=== PATIENT | male | born 1945 | race Caucasian/White ===

== ENCOUNTER → 2019-02-12 19:51 | Outpatient (CLI) | payer MEDICARE, OTHER, SELFPAY | PROVIDERS: Family Provider Family Medicine; PCP Family Medicine; Referring Provider Nurse Practitioner Family; Visit Provider Nurse Practitioner Family | DX: G47.33 Obstructive sleep apnea (adult) (pediatric) (principal) | CPT/HCPCS: 95811 ==

== ENCOUNTER → 2019-09-15 10:15 | Outpatient (CLI) | payer MEDICARE, OTHER, SELFPAY ==
[2019-09-10 08:33] VITALS: BMI 28.8
--- NOTE | 2019-09-15 10:17 | MRI_ITS ---
STUDY: MRI BRAIN WITH AND WITHOUT CONTRAST REASON FOR EXAM: Male, 74 years old. Parkinsons TECHNIQUE: Standardized multiplanar fat and water weighted pulse sequences were obtained. IV Dotarem 19ml was administered for the contrast portion of the examination. COMPARISON: None. FINDINGS: There is mild cerebral atrophy with widening of the extra-axial spaces and ventricular dilatation. Some gliosis in the posterior left parietal lobe subcortical white matter consistent with a prior infarct. There is no evidence for recent intracranial ischemia or other cause of cytotoxic edema on diffusion weighted imaging (DWI). Normal T2* images of the brain without demonstrated susceptibility artifact. There is no demonstrated hemosiderin stain. Midbrain iron stores are preserved. Normal bilateral basal ganglia. Normal thalami. There is no extra-axial fluid accumulation. Normal flow voids within the major intracranial circulation suggesting patency by spin echo criteria. Normal venous enhancement. There is no enhancing intra-axial or extra-axial abnormality. Normal sella turcica, pituitary gland, infundibular stalk, optic chiasm and hypothalamus. Normal tectal plate and pineal gland. Normal midbrain, nato and medulla. Normal cerebellum. Normal basal cisterns. Normal bilateral temporal bones. Normal bilateral internal auditory canals. There are bilateral ocular lens implants with otherwise normal intraorbital contents. There is mucoperiosteal inflammatory disease of the paranasal sinuses consistent with mild chronic sinusitis. Normal calvarium and skull base. Normal visualized soft tissue structures. Normal visualized upper cervical spine. MRI/Brain W/WO Contrast IMPRESSION: Involutional changes of the brain, as described above. Electronically Signed: Keegan Perez MD at 12:26 EDT Tel , Service support ,
[2019-09-15 11:10] LABS: CREATININE FINGERSTICK 0.7 mg/dL (0.70-1.30); EGFR FINGERSTICK > 60.0000 mL/min (>60)
== END ==
PROVIDERS: PCP Family Medicine; Referring Provider Psychiatry & Neurology Neurology; Visit Provider Psychiatry & Neurology Neurology
DX: G20 Parkinson's disease (principal)
CPT/HCPCS: 70553

== ENCOUNTER → 2019-09-17 08:34 | Outpatient (CLI) | payer MEDICARE, OTHER, SELFPAY ==
[2019-09-10 08:33] VITALS: BMI 28.8
[2019-09-17 10:03] LABS: Hematocrit 46.2 % (40-54); Hemoglobin 15.7 g/dL (13.0-16.5); Mean Corpuscular Hgb 30.5 pg (27.0-32.0); Mean Corpuscular Volume 89.7 fL (80-94); Mean Platelet Vol. 9.5 fl (6.2-12.0); Platelet Count 214 K/mm3 (150-450); RBC Distribution Width CV 13.2 % (11.6-14.6); RBC Distribution Width SD 43.3 fl (35.1-43.9); Red Blood Count 5.15 M/mm3 (4.6-6.2); White Blood Count 6.5 K/mm3 (4.4-11.0)
[2019-09-17 10:38] LABS: Vitamin B12 446 pg/mL (211-911)
[2019-09-17 10:52] LABS: AST(SGOT) 18 U/L (15-37); Alanine Aminotransfer ALT/SGPT 21 U/L (16-61); Albumin, Serum 3.8 g/dL (3.2-5.0); Alkaline Phosphatase 125 U/L (45-117); Anion Gap 5 (5-15); BUN 17 mg/dL (7-18); BUN/Creat Ratio 19.3 RATIO (10-20); Calcium,Total 8.8 mg/dL (8.5-10.1); Chloride 105 mmol/L (98-107); Cholesterol 149 mg/dL (200); Creatinine, Serum 0.88 mg/dL (0.70-1.30); EST Glomerular Filtration Rate 89 mL/min (>60); Est Glom Filt Rate - Afr Amer 108 mL/min (>60); Globulin 3.8 g/dL (2.2-4.2); Glucose 114 mg/dL (74-106); High Density Lipoprotein 67 mg/dL; Potassium 4.1 mmol/L (3.5-5.1); Protein, Total 7.6 g/dL (6.4-8.2); Sodium Level 140 mmol/L (136-145); Thyroid Stim Hormone (TSH) 2.41 uIU/mL (0.358-3.74); Triglycerides 47 mg/dL; Very Low Density Lipoprotein 9 mg/dL (5-40)
[2019-09-18 16:07] LABS: Lead, Blood Adult 16+yrs 1 ug/dL (0-4)
== END ==
PROVIDERS: PCP Family Medicine; Referring Provider Psychiatry & Neurology Neurology; Visit Provider Psychiatry & Neurology Neurology
DX: G31.84 Mild cognitive impairment of uncertain or unknown etiology (principal); I63.9 Cerebral infarction, unspecified; G20 Parkinson's disease; Z77.011 Contact with and (suspected) exposure to lead
CPT/HCPCS: 36415; 80053; 80061; 82607; 82746; 83655; 84443; 85027

== ENCOUNTER → 2021-03-24 09:47 | Outpatient (CLI) | payer MEDICARE, OTHER, SELFPAY ==
--- NOTE | 2021-03-24 09:49 | CDU_ITS ---
Reason For Study: ischemic stroke Rt. Velocities/BP Lt. Velocities/BP Prox CCA 143.0/24.3 cm/sec. Prox CCA 128.4/17.0 cm/sec. Mid CCA 124.7/24.3 cm/sec. Mid CCA 115.8/16.3 cm/sec. Dist CCA 124.7/26.1 cm/sec. Dist CCA 137.5/22.5 cm/sec. Prox ICA 77.7/12.6 cm/sec. Prox ICA 131.7/15.1 cm/sec. Mid ICA 80.2/17.6 cm/sec. Mid ICA 48.7/11.03 cm/sec. Dist ICA 72.8/20.0 cm/sec. Dist ICA 89.3/22.3 cm/sec. Rt. ICA/CCA = .6. Lt. ICA/CCA = 1.1. Prox ECA 117.4/13.3 cm/sec. Prox ECA 121.1/17.0 cm/sec. Rt. Vert. 87.6/22.5 cm/sec. Lt. Vert. 64.1/11.3 cm/sec. Right Extracranial There is homogeneous, smooth atherosclerotic plaque noted in the right common carotid artery. There is heterogeneous, irregular atherosclerotic plaque noted in the right internal carotid artery. There is heterogeneous, irregular atherosclerotic plaque noted in the right external carotid artery. Antegrade flow is noted in the right vertebral artery. Left Extracranial There is homogeneous, smooth atherosclerotic plaque noted in the left common carotid artery. There is heterogeneous, irregular atherosclerotic plaque noted in the left internal carotid artery. The atherosclerotic plaque causes acoustic shadowing. There is heterogeneous, irregular atherosclerotic plaque noted in the left external carotid artery. Antegrade flow is noted in the left vertebral artery. Procedure Carotid Duplex 27130. This is a Carotid Duplex examination using B-mode, color flow and specral Doppler. The exam was diagnostic. Exam performed in department. VL/Carotid Duplex Ultrasound Interpretation Summary Mild calcific plaque with shadowing at the proximal right internal carotid albino ry with less than 50% stenosis Less than 50% stenosis right external carotid artery Irregular calcific plaque with shadowing at the proximal left internal carotid artery with 50 to 69% stenosis. Less than 50% stenosis left external carotid artery Patent antegrade vertebral arteries bilaterally Ordering Physician: Carmen Darnell Performed By: Albin Marsh RVT
== END ==
PROVIDERS: PCP Family Medicine; Referring Provider Nurse Practitioner Family; Visit Provider Nurse Practitioner Family
DX: I65.23 Occlusion and stenosis of bilateral carotid arteries (principal); Z86.73 Personal history of transient ischemic attack (TIA), and cerebral infarction without residual deficits
CPT/HCPCS: 93880

== ENCOUNTER → 2021-09-26 | Outpatient (CLI) | payer MEDICARE, OTHER, SELFPAY ==
--- NOTE | 2021-09-26 08:55 | CDU_ITS ---
Reason For Study: Stenosis Rt. Velocities/BP Lt. Velocities/BP Prox CCA 132.4/18.2 cm/sec. Prox CCA 117.4/17 cm/sec. Mid CCA 123.5/22.6 cm/sec. Mid CCA 112/18.8 cm/sec. Dist CCA 102.8/17 cm/sec. Dist CCA 101/15.2 cm/sec. Prox ICA 86.4/11.5 cm/sec. Prox ICA 69.1/12.6 cm/sec. Mid ICA 84.6/18.8 cm/sec. Mid ICA 60.5/13.9 cm/sec. Dist ICA 95.5/18.8 cm/sec. Dist ICA 110.9/27.4 cm/sec. Rt. ICA/CCA = 0.77. Lt. ICA/CCA = 0.99. Prox ECA 106.5/7.9 cm/sec. Prox ECA 112/9.7 cm/sec. Rt. Vert. 68.5/10.2 cm/sec. Lt. Vert. 50.7/10.2 cm/sec. Right Extracranial There is homogeneous, smooth atherosclerotic plaque noted in the right common carotid artery. There is heterogeneous, irregular atherosclerotic plaque noted in the right internal carotid artery. There is heterogeneous, smooth atherosclerotic plaque noted in the right external carotid artery. Antegrade flow is noted in the right vertebral artery. Left Extracranial There is homogeneous, smooth atherosclerotic plaque noted in the left common carotid artery. There is heterogeneous, irregular atherosclerotic plaque noted in the left internal carotid artery. The atherosclerotic plaque causes acoustic shadowing. There is heterogeneous, irregular atherosclerotic plaque noted in the left external carotid artery. Antegrade flow is noted in the left vertebral artery. Procedure Carotid Duplex [id number]. This is a Carotid Duplex examination using B-mode, color flow and specral Doppler. Exam performed in department. VL/Carotid Duplex Ultrasound Interpretation Summary Irregular calcific plaque at the proximal right internal carotid artery with le ss than 50% stenosis Less than 50% stenosis right external carotid artery Irregular calcific plaque of the proximal left internal carotid artery with les s than 50% stenosis Less than 50% stenosis left external carotid artery Patent and antegrade vertebral arteries bilaterally No change from the previous examination of March 24, 2021 Ordering Physician: Carmen Darnell Referring Physician: Danilo Telles MD Performed By: Maris Lujan RVT
== END | disposition home or self-care (01) ==
LOC: CVS 08:54
PROVIDERS: PCP Family Medicine; Referring Provider Nurse Practitioner Family; Visit Provider Nurse Practitioner Family
DX: I65.23 Occlusion and stenosis of bilateral carotid arteries (principal)
CPT/HCPCS: 93880

== ENCOUNTER → 2023-06-14 | Outpatient (CLI) | payer MEDICARE, OTHER, SELFPAY ==
--- OUTSIDE RECORDS SUMMARY | 2023-06-14 09:43 | XMS RPT_ITS | CCD ---
Author Name Unknown Address [address] [place] [address] Organization [facility] Care Team Providers Care Secretary Specialist Name Role Phone DANILO TELLES Admitting Unavailable DANILO TELLES Attending Unavailable DANILO TELLES Consulting Unavailable DANILO TELLES Primary Care Unavailable PROVIDER, UNKNOWN Consulting Unavailable PROVIDER, UNKNOWN Consulting Unavailable PROVIDER, UNKNOWN Consulting Unavailable Danilo Telles MD Unavailable [facility] Unavailable Dr. Johnathon Gray DC Unavailable Dr. Jabari Lay MD Unavailable [phone] Rog[address] DOLL WIG HACKLER, Kira Unavailable Melchor DOLL WIG HACKLER, Lilian Jeffers Unavailable Unavailable Peggy Mojica MA Unavailable Unavailable Nabeel DOLL WIG HACKLER, Paty Unavailable Unavailable Ranjeet Alberto MD Unavailable Ana Marsh Unavailable Unavailable Gen ZAMARRIPAN, Luna Unavailable Unavailable Dennis MART, Haydee Alexander Unavailable Unavaila Regina Ragland MA Unavailable Unavailable Coty ZAMARRIPAN, Ynes Unavailable Unavailable Anna MART, Shahla Yoon Unavailable Unavailable Mutersaustin DOLL WIG HACKLER, Bouchra K Unavailable Unavai genny Aguilar DOLL WIG HACKLER, Rosibel L Unavailable Unavailab carl Wayne DOLL WIG HACKLER, Alona M Unavailable Unavailab carl Branham LPN, Anusha Mcarthur Unavailable Unavailab Luna Sarah MA Unavailable Unavailable Dee ZAMARRIPAN, Yen Unavailable Unavaillaurence Villaseñor DOLL WIG HACKLER, Kristy Unavailable Unavailable Unavailable Unavailable Medications Current Medications Medication Drug Class(es) Dates Sig (Normalized) Sig (Original) atorvastatin 20 mg oral tablet (2 sources) HMG-CoA Reductase Inhibitor Start: 06-04-2023 atorvastatin 20 mg tablet ; 1 (one) Tablet qhs for 0 days Quantity: 90 {Tablet} Refills: 1 Ordered: 04-Jun-2023 MD Danilo Telles Start: 04-Jun-2023 carbidopa 25 mg / levodopa 100 mg oral tablet (2 sources) Aromatic Amino Acid Decarboxylation Inhibitor, Aromatic Amino Acid take 1 tablet by mouth three times daily Carbidopa-Levodop a 25-100 MG Oral Tablet ; 1 three times daily (25-100 MG) rivastigmine 4.5 mg oral capsule (2 sources) take 1 capsule by mouth twice daily Rivastigmine Tartrate 4.5 MG Oral Capsule ; 1 two times daily (4.5 MG) tamsulosin hydrochloride 0.4 mg oral capsule (2 sources) alpha-Adrenergic Adelina Start: 05-13-2023 tamsulosin 0.4 mg capsule ; 1 (one) capsule qd for 0 days Quantity: 90 {Capsule} Refills: 3 Ordered: 13-May-2023 MD Danilo Telles Start: 13-May-2023 Completed/Discontinued Medications Medication Drug Class(es) Dates Sig (Normalized) Sig (Original) aspirin 325 mg oral tablet (6 sources) Platelet Aggregation Inhibitor, Nonsteroidal Anti-inflammatory Drug Start: 12-24-2012 End: 03-02-2015 take 1 tablet by mouth once daily ASPIRIN, 325MG (Oral Tablet) ; 1 Tablet daily for 0 days Quantity: 90 {Tablet} Refills: 3 Ordered: 02-Mar-2015 TED Branham Anusha Mcarthur Start: 24-Dec-2012 End: 02-Mar-2015 Status: Inactive Problems Active Problems Problem Classification Problem Date Documented Da te Episodic/Chronic Abdominal hernia (2 sources) Inguinal hernia, without mention of obstruction or gangrene, unilateral or unspecified (not specified as recurrent) 03-17-2013 Episodic Acute bronchitis (2 sources) Acute bronchitis; Translations: [Acute bronchitis, unspecified] 10-16-2018 Episodic Diabetes mellitus without complication (14 sources) Increased glucose level; Translations: [Other abnormal glucose] 04-19-2020 Episodic Disorders of lipid metabolism (20 sources) Hyperlipidemia; Translations: [Hyperlipidemia, unspecified] 05-13-2023 Chronic Hyperplasia of prostate (4 sources) Nocturia due to benign prostatic hypertrophy; Translations: [Benign prostatic hyperplasia with lower urinary tract symptoms] 05-13-2023 Chronic Immunizations and screening for infectious disease (20 sources) Needs influenza immunization; Translations: [Encounter for immunization] 03-28-2020 Episodic Other aftercare (10 sources) Long-term (current) use of other medications 12-03-2011 Episodic Other circulatory disease (20 sources) History of cerebrovascular accident; Translations: [Personal history of transient ischemic attack (TIA), and cerebral infarction without residual deficits] 05-13-2023 Episodic Other circulatory disease (4 sources) Orthostatic hypotension; Translations: [Orthostatic hypotension] 05-23-2022 Episodic Other connective tissue disease (2 sources) Injury of musculoskeletal system; Translations: [Other bursitis, not elsewhere classified, unspecified site] 03-25-2020 Episodic Other injuries and conditions due to external causes (2 sources) Injury of shoulder region; Translations: [Unspecified injury of shoulder and upper arm, unspecified arm, initial encounter] 07-25-2020 Episodic Other lower respiratory disease (4 sources) Cough; Translations: [Cough] 12-16-2018 Episodic Other nervous system disorders (2 sources) Tremor; Translations: [Tremor, unspecified] 12-12-2018 Episodic Other screening for suspected conditions (not mental disorders or infectious disease) (20 sources) Patient encounter status; Translations: [Encounter for screening for diabetes mellitus] 05-13-2023 Episodic Residual codes; unclassified (6 sources) Influenza vaccination declined; Translations: [Immunization not carried out because of patient refusal] 04-18-2020 Episodic Unclassified (18 sources) Parkinsonism; Translations: [Paralysis agitans] 05-13-2023 Chronic Unclassified (2 sources) MCR Well Adult - In general the patient feels well with no complaints, has good energy level and is sleeping well. The patient takes no supplemental vitamins & iron. The patient exercises none (Pt stays active.) and sleeps 7 hours per night. The patient denies having trouble with bathing, dressing/grooming, toileting, preparing meals and ambulating. The patient denies having trouble with grocery shopping, driving, use of telephone, housework, laundry, preparing/taking medications and finances. The patient has a Healthcare Power of Cardiology Teacher and a Living Will. 05-23-2022 Unclassified (2 sources) Follow Up for Multiple Chronic Conditions - The patient is here for follow-up of hyperlipidemia. The patient always takes the prescribed medications. No side effects noted (needs refill). The patient has an active lifestyle but no regular exercise program. The patient's out of office blood pressure checks occur occasionally and dietary compliance is fairly good usually adhering to recommendations. The patient states that there is no recent angina or dyspnea, weight has increased (up 1 pound) and headaches are rarely noted. 10-31-2021 Unclassified (2 sources) Follow Up for Multiple Chronic Conditions - The patient is here for follow-up of hyperlipidemia and other condition(s) (Parkinsons). The patient always takes the prescribed medications. No side effects noted (does not need refills). The patient engages in regular exercise program 3-5 times per week (walks). The patient's out of office blood pressure checks occur rarely and dietary compliance is fairly good usually adhering to recommendations. The patient states that there is no recent angina or dyspnea, weight has decreased (down 9 pounds) and headaches are rarely noted. Note for Multiple chronic conditions follow-up : reviewed by [facility] 10-18-2020 Unclassified (2 sources) [ADDITIONAL REASON] Transition into care - The patient is transitioning into care from another physician (Neurology) and a summary of care was reviewed. 10-18-2020 Unclassified (2 sources) Follow Up for Multiple Chronic Conditions - The patient is here for follow-up of hyperlipidemia and other condition(s) (Elevated blood sugar). The patient always takes the prescribed medications. No side effects noted (does not need refill). The patient has an active lifestyle but no regular exercise program. The patient's out of office blood pressure checks occur rarely and dietary compliance is fairly good usually adhering to recommendations. The patient states that there is no recent angina or dyspnea and weight is unchanged. 10-30-2019 Unclassified (2 sources) MCR Well Adult - In general the patient feels well with no complaints, has good energy level and is sleeping well. The patient exercises none (no planned exercise but is active at work and walking) and sleeps 7 (7-8 hours) hours per night. The patient denies having trouble with bathing, dressing/grooming, toileting, preparing meals and ambulating. The patient denies having trouble with grocery shopping, driving, use of telephone, housework, laundry, preparing/taking medications and finances. The patient has a Healthcare Power of Cardiology Teacher and a Living Will. Note for [facility] Well Adult : Labs printed to review today. reviewed by [facility] 04-11-2018 Unclassified (2 sources) [facility] Well Adult - In general the patient feels well with no complaints (Pt here today for physical. Feels he is doing well and has no concerns today. Labs done and ready to review. Pt states he had a Colonoscopy about [address] Jabari Lay and was a normal scope according to patient.). The patient has a balanced diet and takes no supplemental vitamins & iron. The patient exercises none (but does do a lot of walking and is active.) and sleeps 7 hours per night. The patient denies having trouble with bathing, dressing/grooming, toileting, preparing meals and ambulating. The patient denies having trouble with grocery shopping, driving, use of telephone, housework, laundry, preparing/taking medications and finances. The patient has a Healthcare Power of Cardiology Teacher and a Living Will. Note for [facility] Well Adult : reviewed by [facility] 08-24-2016 Unclassified (2 sources) Follow Up for Multiple Chronic Conditions - The patient is here for follow-up of hyperlipidemia. The patient always takes the prescribed medications. No side effects noted (needs refills). The patient has an active lifestyle but no regular exercise program. The patient's out of office blood pressure checks occur occasionally and dietary compliance is fairly good usually adhering to recommendations. The patient states that there is no recent angina or dyspnea, weight has decreased (down 1 pound) and they do not have headaches. 02-29-2016 Unclassified (2 sources) Follow Up for Multiple Chronic Conditions - The patient is here for follow-up of hyperlipidemia and other condition(s) (HX of CVA.). The patient always takes the prescribed medications. No side effects noted. The patient engages in regular exercise program 3-5 times per week (and does a lot of walking.). The patient's dietary compliance is fairly good usually adhering to recommendations. The patient states that there is no recent angina or dyspnea, there are no vision changes or weakness, weight has increased (up 5# from last visit.) and they do not have headaches. The patient states that the disease has no overall impact (Pt states is actually doing well. No concerns today.). Note for Multiple chronic conditions follow-up : Does notsee any specialists. Labs done and readsy to review. UTD with Immunizations. reviewed by [facility] 09-02-2015 Unclassified (2 sources) [facility] Routine Follow up - The patient is here for follow-up of hyperlipidemia and history of cva. The patient always takes the prescribed medications. No side effects noted. (needs refills) The patient has an active lifestyle but no regular program. The patient's out of office blood pressure checks occur rarely and dietary compliance is fairly good usually adhering to recommendations. The patient states that there is no recent angina or dyspnea, weight has decreased (down 6 pounds) and headaches are rarely noted. Note for Routine chronic follow-up : reviewed by [facility] 03-02-2015 Unclassified (2 sources) [facility] Well Adult - In general the patient feels well with no complaints (Pt here for [facility] Physical today. Labs done and ready to review. UTD with Pneumovax, Shingles vaccine and TD. ). The patient has a balanced diet and takes no supplemental vitamins & iron. The patient exercises none (more active in Spring and Summer with getting out and walking.) and sleeps 8 hours per night. Over the past 2 weeks, the patient has not been feeling down, depressed, or hopeless or feeling little interest or pleasure in doing things. The patient denies having trouble with bathing, dressing/grooming, toileting, preparing meals and ambulating. The patient denies having trouble with grocery shopping, driving, use of telephone, housework, laundry, preparing/taking medications and finances. The patient has a Healthcare Power of Cardiology Teacher and a Living Will. Note for [facility] Well Adult : Pt has not fallen at all in past 12 months. 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 08-20-2014 Unclassified (2 sources) Follow Up for Multiple Chronic Conditions - The patient is here for follow-up of hyperlipidemia and other condition(s) (History of CVA). The patient always takes the prescribed medications. No side effects noted (Needs refills.). The patient engages in regular exercise program 3-5 times per week (walks). The patient's out of office blood pressure checks occur occasionally and dietary compliance is fairly good usually adhering to recommendations. The patient states that there is no recent angina or dyspnea, weight has decreased (Down 11 pounds.) and headaches are rarely noted. 02-17-2014 Unclassified (2 sources) Follow Up for Multiple Chronic Conditions - The patient is here for follow-up of hyperlipidemia and other condition(s) (HX of CVA). The patient always takes the prescribed medications. No side effects noted. The patient engages in regular exercise program 3-5 times per week (Walks daily.). The patient's dietary compliance is fairly good usually adhering to recommendations. The patient states that there is no recent angina or dyspnea, there are no vision changes or weakness, weight has increased (Up about 7# from last visit.) and they do not have headaches. Note for Multiple chronic conditions follow-up : Does not check out of office BP's. Pt states is doing and feeling well. HAs no concerns today. UTD with PNeumovax and shingles vaccine. Has had labs done and ready to review. reviewed by [facility] 07-31-2013 Unclassified (2 sources) Follow Up for Multiple Chronic Conditions - The patient is here for follow-up of hyperlipidemia and other condition(s) (history of cva). The patient always takes the prescribed medications. No side effects noted. The patient has an active lifestyle but no regular exercise program. The patient's out of office blood pressure checks occur rarely. The patient states that the disease has no overall impact. Note for Multiple chronic conditions follow-up : reviewed by [facility] 01-16-2013 Unclassified (2 sources) Follow Up for Multiple Chronic Conditions - The patient is here for follow-up of hyperlipidemia. The patient always takes the prescribed medications. No side effects noted. The patient engages in regular exercise program 3-5 times per week (Walks daily). The patient's dietary compliance is fairly good usually adhering to recommendations. The patient states that there is no recent angina or dyspnea, there are no vision changes or weakness, weight has increased (Up about2# from last visit.) and they do not have headaches. Note for Multiple chronic conditions follow-up : Pt feels is doing well. Has no concerns today. Has been fasting. reviewed by [facility] 07-18-2012 Unclassified (2 sources) Follow Up for Multiple Chronic Conditions - The patient is here for follow-up of hyperlipidemia and other condition(s) (History of CVA.). The patient always takes the prescribed medications. No side effects noted. The patient has an active lifestyle but no regular exercise program. The patient's out of office blood pressure checks occur rarely and dietary compliance is fairly good usually adhering to recommendations. The patient states that weight is unchanged and they do not have headaches. Note for Multiple chronic conditions follow-up : reviewed by [facility] 01-04-2012 Unclassified (2 sources) Follow Up for Multiple Chronic Conditions - The patient is here for follow-up of hyperlipidemia. The patient always takes the prescribed medications. No side effects noted. The patient engages in regular exercise program 1-3 times per week. The patient's dietary compliance is fairly good usually adhering to recommendations. The patient states that there is no recent angina or dyspnea, there are no vision changes or weakness and weight has decreased (Pt is down about 3# from last visit.). Note for Follow Up for Multiple Chronic Conditions : Pt has been fasting. DOing well. No concerns. 07-06-2011 Unclassified (2 sources) Follow Up for Multiple Chronic Conditions - The patient is here for follow-up of hyperlipidemia and other condition(s) (History of CVA). The patient always takes the prescribed medications. No side effects noted. The patient has an active lifestyle but no regular exercise program. The patient's out of office blood pressure checks occur rarely. The patient states that weight is unchanged and headaches are rarely noted. Note for Follow Up for Multiple Chronic Conditions : Is fasting today. reviewed by [facility] 01-09-2011 Unclassified (2 sources) Follow up for multiple chronic conditions - The patient is here for follow-up of hyperlipidemia. The patient always takes the prescribed medications. No side effects noted. The patient engages in regular program 3-5 time(s) per week. The patient's out of office blood pressure checks occur occasionally and dietary compliance is fairly good usually adhering to recommendations. 07-11-2010 Past or Other Problems Problem Classification Problem Date Documented Date Episodic/Chronic Other lower respiratory disease (3 sources) Cough; Translations: [Cough] Onset: 12-15-2018 Episodic Unclassified (2 sources) MCR Well Adult - In general the patient feels well with no complaints, has good energy level and is sleeping well. The patient has a balanced diet and takes no supplemental vitamins & iron. The patient does not exercise and sleeps 7 hours per night. The patient denies having trouble with bathing, dressing/grooming, toileting, preparing meals and ambulating. The patient denies having trouble with grocery shopping, driving, use of telephone, housework, laundry, preparing/taking medications and finances. The patient has a Healthcare Power of Cardiology Teacher and a Living Will. Note for [facility] Well Adult : reviewed by [facility] 05-13-2023 Unclassified (2 sources) Dizziness - The onset of the dizziness has been variable and has been occurring in an intermittent pattern for 12 hours. The course has been decreasing. The dizziness is characterized as lightheadedness. The dizziness is precipitated by position change. Note for Dizziness : Had low blood pressure readings yesterday. Mid afternoon 93/50 reviewed by [facility] 12-19-2021 Unclassified (2 sources) [facility] Well Adult - In general the patient feels well with no complaints, has good energy level and is sleeping well. The patient has a balanced diet and takes no supplemental vitamins & iron. The patient exercises daily (walks) and sleeps 7 hours per night. The patient denies having trouble with bathing, dressing/grooming, toileting, preparing meals and ambulating. The patient denies having trouble with grocery shopping, driving, use of telephone, housework, laundry, preparing/taking medications and finances. The patient has a Healthcare Power of Cardiology Teacher and a Living Will. Note for [facility] Well Adult : reviewed by [facility] 04-25-2021 Unclassified (2 sources) Shoulder pain - The onset of the shoulder pain has been acute (Fell outside 4 weeks ago.) and has been occurring in a persistent pattern for 4 weeks. The course has been without change. The pain is characterized as a moderate sharp stabbing. The pain is described as being located in the right shoulder and is aggravated by overhead activity. Note for Shoulder pain : reviewed by [facility] 07-25-2020 Unclassified (2 sources) [facility] Well Adult - In general the patient feels well with no complaints, has good energy level and is sleeping well. The patient has a balanced diet and takes no supplemental vitamins & iron. The patient exercises none (walks a lot) and sleeps 7 hours per night. The patient denies having trouble with bathing, dressing/grooming, toileting, preparing meals and ambulating. The patient denies having trouble with grocery shopping, driving, use of telephone, housework, laundry, preparing/taking medications and finances. The patient has a Healthcare Power of Cardiology Teacher and a Living Will. Note for [facility] Well Adult : reviewed by [facility] 04-19-2020 Unclassified (2 sources) Knee pain - The onset of the knee pain has been sudden following an incident not at work (fall at home) and has been occurring for 3 weeks. The knee pain is in the left knee. The knee pain is characterized as a dull aching. The knee pain is described as being located in the entire knee. The symptoms have been associated with joint swelling. 03-25-2020 Unclassified (2 sources) [facility] Well Adult - In general the patient feels well with no complaints, has good energy level and is sleeping well. The patient has a balanced diet and takes no supplemental vitamins & iron. The patient does not exercise and sleeps 7 hours per night. The patient denies having trouble with bathing, dressing/grooming, toileting, preparing meals and ambulating. The patient denies having trouble with grocery shopping, driving, use of telephone, housework, laundry, preparing/taking medications and finances. The patient has a Healthcare Power of Cardiology Teacher and a Living Will. Note for [facility] Well Adult : Labs printed to review today. reviewed by [facility] 04-17-2019 Unclassified (2 sources) Concern - 1) About 6 weeks ago, patient had cold sx, has a lingering occasional dry cough. Does wear a CPAP machine and will wake up in the morning and cough for a bit. For over45 years, been sandblasting. Is concerned about possible particles that may have gotten into his lungs. 2) For the past 6 months, has noticed his left hand shaking. Handwriting with the right hand is not as neat as it used to be. Patient's cousin had Parkinson. reviewed by [facility] 12-12-2018 Unclassified (2 sources) Cold Symptoms - Symptoms include nasal congestion (in the beginning), runny nose, sore throat (in the beginning), productive cough, fever (was 101.5 F last night) and general malaise. The onset was sudden 1 week(s) ago. The symptoms occur constantly. The patient describes this as moderate in severity and improving (feeling better today). Current treatment includes an oral decongestant (Mucinex) and Ziacam. Risk factors do not include smoking. Patient denies history of seasonal allergies or asthma. Note for Upper respiratory infection : reports that he has been more disoriented at times, unsure of the time. Is sleeping alot more than usual. 10-16-2018 Unclassified (2 sources) Follow Up for Multiple Chronic Conditions - The patient is here for follow-up of hyperlipidemia and other condition(s) (Elevated blood sugar). The patient always takes the prescribed medications. No side effects noted (needs refill today). The patient has an active lifestyle but no regular exercise program (did try to exercise but stopped due to having knee pain). The patient's out of office blood pressure checks occur rarely and dietary compliance is fairly good usually adhering to recommendations. The patient states that there is no recent angina or dyspnea. 10-10-2018 Results Test Name Value Interpretation Reference Range Facil ity Vital Signs Date Time Vital Sign Value Performing Clinician Faci lity 05-13-2023 16:00-0500 Body height 172.72 cm Anusha Branham LPN [employer], [employer]. 05-13-2023 16:00-0500 Body mass index (BMI) [Ratio] 26 kg/m2 JieLyubov Branham DOLL WIG HACKLER [employer].; [employer], [employer]. 05-13-2023 16:00-0500 Body surface area Derived from formula 1.91 m2 Anusha Branham LPN [facility], [employer], [employer]. 05-13-2023 16:00-0500 Body weight 77.57 kg Anusha Branham LPN [employer], [employer], [employer]. 05-13-2023 16:00-0500 Diastolic blood pressure 71 mm[Hg] JieLyubov Branham DOLL WIG HACKLER [employer] [facility] [employer] Encounters Encounter Date Encounter Type Care Provider Facility Start: 05-13-2023 End: 05-13-2023 Patient encounter procedure Danilo Telles MD Work Phone: [employer] Start: 05-13-2023 End: 05-13-2023 Periodic preventive med est patient 65yrs& older Danilo Telles MD Work Phone: [employer] Start: 05-06-2023 End: 05-06-2023 Orders Danilo Telles MD Work Phone: [employer] Start: 04-22-2023 End: 04-22-2023 Orders Danilo Telles MD Work Phone: [employer]. Start: 03-29-2023 End: 03-29-2023 Nursing evaluation of patient and report Danilo Telles MD Work Phone: [employer] Start: 05-23-2022 End: 05-23-2022 Patient encounter procedure Danilo Telles MD Work Phone: [employer]; [employer]. Start: 05-23-2022 End: 05-23-2022 Periodic preventive med est patient 65yrs& older Danilo Telles MD Work Phone: [employer]. Start: 04-30-2022 End: 05-07-2022 Orders Danilo Telles MD Work Phone: [employer] Start: 03-29-2022 End: 03-29-2022 Nursing evaluation of patient and report Danilo Telles MD Work Phone: [employer] Start: 03-14-2022 End: 03-14-2022 Orders Danilo Telles MD Work Phone: [employer] Start: 12-19-2021 End: 12-19-2021 Office outpatient visit 15 minutes Danilo Telles MD Work Phone: [employer] Start: 10-31-2021 End: 10-31-2021 Office outpatient visit 15 minutes Danilo Telles MD Work Phone: [employer] Start: 04-25-2021 End: 04-25-2021 Patient encounter procedure Danilo Telles MD Work Phone: [employer]; [employer] Start: 04-25-2021 End: 04-25-2021 Periodic preventive med est patient 65yrs& older Danilo Telles MD Work Phone: [employer]. Start: 04-18-2021 End: 04-18-2021 Orders Danilo Telles MD Work Phone: [employer]. Start: 03-28-2021 End: 03-28-2021 Orders Danilo Telles MD Work Phone: [employer]. Start: 03-28-2021 End: 03-28-2021 Nursing evaluation of patient and report Danilo Telles MD Work Phone: [employer] Start: 10-18-2020 End: 10-18-2020 Office outpatient visit 15 minutes Danilo Telles MD Work Phone: [employer] Start: 07-25-2020 End: 07-25-2020 Office outpatient visit 15 minutes Danilo Telles MD Work Phone: [employer] Start: 04-19-2020 End: 04-19-2020 Patient encounter procedure Danilo Telles MD Work Phone: [employer]; [employer]. Start: 04-19-2020 End: 04-19-2020 Periodic preventive med est patient 64yrs& older Danilo Telles MD Work Phone: [employer] Start: 03-28-2020 End: 03-28-2020 Nursing evaluation of patient and report Danilo Telles MD Work Phone: [employer] Start: 03-23-2020 End: 03-25-2020 Patient encounter procedure Kristy Villaseñor LPN [employer]. Start: 02-10-2020 End: 02-10-2020 Orders Danilo Telles MD Work Phone: [employer] Start: 10-30-2019 End: 10-30-2019 Office outpatient visit 25 minutes Danilo Telles MD Work Phone: [employer] Start: 04-17-2019 End: 04-17-2019 Patient encounter procedure Danilo Telles MD Work Phone: [employer]; [employer] Start: 04-17-2019 End: 04-17-2019 Periodic preventive med est patient 64yrs& older Danilo Telles MD Work Phone: [employer]. Start: 04-10-2019 End: 04-10-2019 Orders Danilo Telles MD Work Phone: [employer]. Start: 03-20-2019 End: 03-20-2019 Nursing evaluation of patient and report Danilo Telles MD Work Phone: [employer]. Start: 03-06-2019 End: 03-09-2019 Orders Danilo Telles MD Work Phone: [employer]. Start: 02-17-2019 End: 02-17-2019 Medication Danilo Telles MD Work Phone: [employer]. Start: 12-16-2018 End: 12-16-2018 Medication Danilo Telles MD Work Phone: [employer] Start: 12-15-2018 End: 12-15-2018 Patient encounter procedure DANILO TELLES [facility] Start: 12-12-2018 End: 12-12-2018 Office outpatient visit 15 minutes Danilo Telles MD Work Phone: [employer] Start: 10-16-2018 End: 10-16-2018 Office outpatient visit 15 minutes Danilo Telles MD Work Phone: [employer] Start: 10-10-2018 End: 10-10-2018 Office outpatient visit 15 minutes Danilo Telles MD Work Phone: [employer]. Start: 04-11-2018 End: 04-11-2018 Patient encounter procedure Danilo Telles MD Work Phone: [employer] Start: 04-11-2018 End: 04-11-2018 Periodic preventive med est patient 64yrs& older Danilo Telles MD Work Phone: [employer] Start: 04-04-2018 End: 04-04-2018 Orders Danilo Telles MD Work Phone: [employer]. Start: 01-27-2018 End: 01-27-2018 Orders Danilo Telles MD Work Phone: [employer]. Start: 09-10-2016 End: 09-10-2016 Medication Danilo Telles MD Work Phone: [employer]. Start: 08-24-2016 End: 08-24-2016 Patient encounter procedure Danilo Telles MD Work Phone: [employer] Start: 08-24-2016 End: 08-24-2016 Periodic preventive med est patient 64yrs& older Danilo Telles MD Work Phone: [employer]. Start: 08-21-2016 End: 08-21-2016 Historical Summary Danilo Telles MD Work Phone: [employer]. Start: 08-10-2016 End: 08-10-2016 Orders Danilo Telles MD Work Phone: [employer]. Start: 06-26-2016 End: 06-27-2016 Kimberly Telles MD Work Phone: [employer]. Start: 02-29-2016 End: 02-29-2016 Office outpatient visit 15 minutes Danilo Telles MD Work Phone: [employer]. Start: 02-24-2016 End: 02-24-2016 Orders Danilo Telles MD Work Phone: [employer]. Start: 09-02-2015 End: 09-02-2015 Office outpatient visit 15 minutes Danilo Telles MD Work Phone: [employer]. Start: 08-26-2015 End: 08-26-2015 Orders Danilo Telles MD Work Phone: [employer]. Start: 03-02-2015 End: 03-02-2015 Office outpatient visit 15 minutes Danilo Telles MD Work Phone: [employer] Start: 02-18-2015 End: 02-18-2015 Orders Danilo Telles MD Work Phone: [employer] Start: 08-20-2014 End: 08-20-2014 Periodic preventive med est patient 64yrs& older Danilo Telles MD Work Phone: [employer] Start: 08-20-2014 End: 08-20-2014 Routine general medical examination at a health care facility Danilo Telles MD Work Phone: [employer]; [employer] Start: 08-13-2014 End: 08-13-2014 Orders Danilo Telles MD Work Phone: [employer] Start: 02-17-2014 End: 02-17-2014 Office outpatient visit 15 minutes Danilo Telles MD Work Phone: [employer] Start: 02-11-2014 End: 02-11-2014 Nursing evaluation of patient and report Danilo Telles MD Work Phone: [employer] Start: 02-05-2014 End: 02-07-2014 Orders Danilo Telles MD Work Phone: [employer] Start: 07-31-2013 End: 07-31-2013 Patient encounter procedure Danilo Telles MD Work Phone: [employer] Start: 07-28-2013 End: 07-28-2013 Historical Summary Danilo Telles MD Work Phone: [employer] Start: 07-21-2013 End: 07-21-2013 Orders Danilo Telles MD Work Phone: [employer] Start: 03-17-2013 End: 03-17-2013 Orders Danilo Telles MD Work Phone: [employer] Start: 01-16-2013 End: 01-16-2013 Patient encounter procedure Danilo Telles MD Work Phone: [employer] Start: 12-24-2012 End: 12-24-2012 Medication Danilo Telles MD Work Phone: [employer] Start: 07-18-2012 End: 07-18-2012 Patient encounter procedure Danilo Telles MD Work Phone: [employer]. Start: 01-04-2012 End: 01-04-2012 Patient encounter procedure Danilo Telles MD Work Phone: [employer]. Start: 12-03-2011 End: 12-03-2011 Medication Danilo Telles MD Work Phone: [employer]. Start: 09-17-2011 End: 09-17-2011 Medication Danilo Telles MD Work Phone: [employer]. Start: 07-06-2011 End: 07-06-2011 Patient encounter procedure Danilo Telles MD Work Phone: [employer]. Start: 05-09-2011 End: 05-09-2011 Medication Danilo Telles MD Work Phone: [employer]. Start: 01-09-2011 End: 01-09-2011 Patient encounter procedure Danilo Telles MD Work Phone: [employer]. Start: 10-03-2010 End: 10-03-2010 Medication Danilo Telles MD Work Phone: [employer]. Start: 08-16-2010 End: 08-16-2010 Medication Danilo Telles MD Work Phone: [employer]. Start: 07-11-2010 End: 07-11-2010 Patient encounter procedure Danilo Telles MD Work Phone: [employer]. Start: 03-13-2010 End: 03-13-2010 Medication Danilo Telles MD Work Phone: [employer]. Start: 03-13-2010 End: 03-13-2010 Nursing evaluation of patient and report Danilo Telles MD Work Phone: [employer]. Patient encounter procedure Danilo Telles MD Work Phone: [employer]. Patient encounter procedure Anusha Branham LPN [facility] [employer] Procedures Date Procedure Procedure Detail Performing Clinician Start: 05-13-2023 End: 05-13-2023 Adv care pln/ no alt dcsn mkr docd or refusal Danilo Telles MD Work Phone: Start: 05-13-2023 End: 05-13-2023 Depression screening Danilo Telles MD Work Phone: Start: 05-13-2023 End: 05-13-2023 Falls risk assessment documented Danilo Telles MD Work Phone: Start: 05-13-2023 End: 05-13-2023 PPPS, subseq visit Danilo Telles MD Work Phone: Start: 05-13-2023 End: 05-13-2023 Pt falls assess docd w/o fall/injury past year Danilo Telles MD Work Phone: Start: 05-13-2023 End: 05-13-2023 Scr dep neg, no plan reqd Danilo Telles MD Work Phone: Start: 05-06-2023 End: 05-06-2023 Lab findings surveillance Anusha lynch DOLL WIG HACKLER Plan of Treatment Date Care Activity Detail Author Start: 11-14-2023 Patient encounter procedure Medical; RTN OFFICE VISIT - 6 mo rtn [facility] [employer]. Start: 14-Nov-2023 10:00 MD Danilo Telles Appointment Request [facility] Immunizations Immunization Date Immunization Notes Care Provider Fa cility 03-29-2023 influenza virus vaccine, unspecified formulation Danilo Telles MD Work Phone: [employer]. 03-29-2023 influenza, injectabl e, quadrivalent, preservative free Danilo Telles MD Work Phone: [employer] Payers Date Payer Category Payer Unknown [id number] Medicare [id number] Private Health Insurance [id number] Unknown Social History Date Type Detail Facility Caffeine Use Caffeine Use [employer]; [employer] Current Work/Study Status: [employer] Work/Study Status: ; Self-employed. [employer]; [employer] Tobacco Use: Tobacco Use: ; N ever smoker. [employer]; [employer] Male [employer]; [employer] Work Phone: Self-employed [employer]; [employer] Work Phone: Never smoked tobacco [employer]; [employer] Work Phone: Summary Purpose Family History Breast Cancer Status:Active Comments:Mother. Coronary Artery Disease Status:Active Comments :Father. Diabetes Mellitus Type II Status:Active Commen ts:Father. Hypertension Status:Active Comments:Father. Brother. Mark disease Status:Active Comments:Fat her. Father from this Breast Cancer Status:Active Comments:Mother. Coronary Artery Disease Status:Active Comments :Father. Diabetes Mellitus Type II Status:Active Commen ts:Father. Hypertension Status:Active Comments:Father. Brother. Mark disease Status:Active Comments:Fat her. Father from this Advance Directives No Advanced Directives Records FoundNo Advanced Directives Records FoundNo Advanced Directives Records Found Additional Source Comments (unrecognized sect ion and content) No Status Records FoundNo Status Records FoundNo Status Records Found INFORMATION SOURCE (unrecogn ized section and content) DATE CREATED AUTHOR AUTHOR'S ORGANIZ ATION 06/25/2020 [facility] DATE CREATED AUTHOR AUTHOR'S ORGANIZ ATION 05/09/2023 [facility] FOR RECORDS PERTAINING TO PATIENTS WHO ARE OR HAVE BEEN ENROLLED IN A CHEMICAL DEPENDENCY/SUBSTANCEABUSE PROGRAM, SOME INFORMATION MAY BE OMITTED. This clinical summary was aggregated from multiple sources. Caution should be exercised in using it in the provision of clinical care. This summary normalizes information from multiple sources, and as a consequence, information in this document may materially change the coding, format and clinical context of patient data. In addition, data may be omitted in some cases. CLINICAL DECISIONS SHOULD BE BASED ON THE PRIMARY CLINICAL RECORDS. [facility]. provides no warranty or guarantee of the accuracy or completeness of information in this document.
[2023-06-14 10:00] LABS: Hematocrit 42.1 % (40-54); Hemoglobin 14.1 g/dL (13.0-16.5); Mean Corp Hgb Conc 33.5 g/dL (32-36); Mean Corpuscular Hgb 30.6 pg (27.0-32.0); Mean Corpuscular Volume 91.3 fL (80-94); Mean Platelet Vol. 9.9 fl (6.2-12.0); Platelet Count 237 K/mm3 (150-450); RBC Distribution Width SD 42.5 fl (35.1-43.9); Red Blood Count 4.61 M/mm3 (4.6-6.2); White Blood Count 7.5 K/mm3 (4.4-11.0)
[2023-06-14 10:57] LABS: ALB/GLOB Ratio 1.1 RATIO (0.9-2.4); AST(SGOT) 19 U/L (15-37); Alanine Aminotransfer ALT/SGPT 17 U/L (16-61); Albumin, Serum 3.8 g/dL (3.2-5.0); Alkaline Phosphatase 100 U/L (45-117); Anion Gap 5 (5-15); BUN 28 mg/dL (7-18); BUN/Creat Ratio 23.3 RATIO (10-20); Calcium,Total 9.2 mg/dL (8.5-10.1); Chloride 109 mmol/L (98-107); EST Glomerular Filtration Rate 62 mL/min (>60); Est Glom Filt Rate - Afr Amer 75 mL/min (>60); Globulin 3.4 g/dL (2.2-4.2); Glucose 116 mg/dL (74-106); Potassium 4.1 mmol/L (3.5-5.1); Protein, Total 7.2 g/dL (6.4-8.2); Sodium Level 140 mmol/L (136-145); Thyroid Stim Hormone (TSH) 3.42 uIU/mL (0.358-3.74)
== END | disposition home or self-care (01) ==
LOC: MTLAB 09:16
PROVIDERS: PCP Family Medicine; Referring Provider Psychiatry & Neurology Neurology; Visit Provider Psychiatry & Neurology Neurology
DX: G31.84 Mild cognitive impairment of uncertain or unknown etiology (principal); G90.3 Multi-system degeneration of the autonomic nervous system
CPT/HCPCS: 36415; 80053; 84443; 85027